=== PATIENT | female | born 1950 | race Caucasian/White ===

== ENCOUNTER 2021-03-14 15:01 | Inpatient (IN) | payer MEDICARE, BC ==
[~2021-03-14] VITALS: Ht 162.6 cm; Wt 98.6 kg
[2021-03-14] MEDS ORDERED: normal saline 1000ML IV soln IV ONE (15:40)
[2021-03-14] MEDS ORDERED: acetaminophen 325mg tablet PO STA (15:40)
[2021-03-14] MEDS ORDERED: DEXAMETHASONE 6 MG TABLET PO STA (15:42)
[2021-03-14 15:54] LABS: BASOPHILS % (AUTO) 0.6 % (0-1); EOSINOPHILS % (AUTO) 0.1 % (0-6); HEMOGLOBIN 14.6 g/dl (12.0-16.0); LYMPHOCYTES # (AUTO) 0.6 X10'3 (1.1-4.8); LYMPHOCYTES % (AUTO) 7.8 % (21-51); MEAN CORPUSCULAR HEMOGLOBIN 28.6 PG (27.0-31.0); MEAN CORPUSCULAR HGB CONC 33.3 g/dL (33.0-36.5); MONOCYTES # (AUTO) 0.5 X10'3 (0-0.9); MONOCYTES % (AUTO) 6.7 % (2-12); NEUTROPHILS # (AUTO) 6.7 X10'3 (1.8-7.7); NEUTROPHILS % (AUTO) 84.8 % (42-75); PLATELET COUNT 273 X10'3 (140-440); RED BLOOD COUNT 5.12 X10'6 (4.20-5.60); RED CELL DISTRIBUTION WIDTH 14.2 % (11.5-14.5); WHITE BLOOD COUNT 7.9 X10'3 (4.5-11.0)
[2021-03-14 16:15] LABS: ALANINE AMINOTRANSFERASE 45 U/L (12-78); ALBUMIN 2.8 G/DL (3.4-5.0); ALBUMIN/GLOBULIN RATIO 0.6 (1.1-1.5); ALKALINE PHOSPHATASE 55 IU/L (46-116); ANION GAP 15 (8-16); ASPARTATE AMINO TRANSFERASE 42 U/L (10-37); BILIRUBIN,TOTAL 0.6 MG/DL (0.1-1.0); BLOOD UREA NITROGEN 14 MG/DL (7-18); BUN/CREATININE RATIO 13.1 (6.6-38.0); CALCIUM 9.2 MG/DL (8.5-10.1); CHLORIDE 102 MMOL/L (99-107); CREATININE 1.07 MG/DL (0.40-0.90); GLUCOSE 178 MG/DL (70-104); MAGNESIUM 2.6 MG/DL (1.5-2.4); POTASSIUM 3.7 MMOL/L (3.5-5.1); SODIUM 141 MMOL/L (135-145); TOTAL CARBON DIOXIDE 24.2 MMOL/L (24-32); TOTAL PROTEIN 7.7 G/DL (6.4-8.2); eGFR 51 ML/MIN
[2021-03-14] MEDS ORDERED: iohexol 350MG/ML 100ml bottle IV ONE (16:47)
[2021-03-14] MEDS ORDERED: magnesium hydroxide 30ml (MOM) UD suspension PO PRN (17:05)
[2021-03-14] MEDS ORDERED: acetaminophen 325mg tablet PO PRN (17:05)
[2021-03-14] MEDS ORDERED: ondansetron/PF 4mg/2ml inj IV PRN (17:05)
[2021-03-14] MEDS ORDERED: mag hydrox/Alum hydrox/simeth 30ml oral suspension PO PRN (17:05)
[2021-03-14] MEDS ORDERED: AMLO10TA13 PO (17:12)
[2021-03-14] MEDS ORDERED: METF-900 PO ×2 (17:12→21:11)
[2021-03-14] MEDS ORDERED: ATOR20TA66 PO (17:12)
[2021-03-14] MEDS ORDERED: RAMI10CA69 PO (17:12)
[2021-03-14] MEDS: MESSAGE TO NURSING PO SCH (17:40)
[2021-03-14] MEDS ORDERED: heparin 10,000 units/1 ML INJ IV PRN (17:55)
[2021-03-14] MEDS ORDERED: heparin 10,000 units/1 ML INJ IV ONE (17:55)
[2021-03-14 19:06] LABS: PARTIAL THROMBOPLASTIN TIME 26 SECONDS (22-32)
[2021-03-14 19:29] LABS: CLARITY,URINE CLEAR (Clear); COLOR,URINE YELLOW (Yellow); UA COLLECTION TYPE CLN CATCH MIDSTREAM
[2021-03-14 19:30] LABS: GLUCOSE, URINE NEGATIVE (Neg); KETONES,URINE NEGATIVE (Neg); LEUKOCYTE ESTERASE ,URINE NEGATIVE (Neg); NITRITES, URINE NEGATIVE (Neg); OCCULT BLOOD,URINE NEGATIVE (Neg); PROTEIN,URINE NEGATIVE (Neg); UROBILINOGEN,URINE 0.2 E.U/dL (0.2-1.0)
[2021-03-14] MEDS ORDERED: enoxaparin 30mg/0.3ml syringe SQ SCH (20:00)
[2021-03-14] MEDS: docusate sod 100mg capsule PO SCH (20:00)
[2021-03-14] MEDS: carvedilol 6.25mg tablet PO SCH (20:36)
[2021-03-14] MEDS: dexamethasone inj 6 MG in normal saline 50ml IV soln 50 ML IV SCH (20:37)
[2021-03-14] MEDS: normal saline 1000ml 1,000 ML IV SCH (20:45)
--- NOTE | 2021-03-14 21:02 | NUR ---
REPORT GIVEN TO CAIO ARELLANO ON ORTHO.
[2021-03-14] MEDS: heparin 25,000 UNIT/250ml bag 250 ML IV SCH (21:07)
[2021-03-14 22:00] VITALS: BP 131/61
[2021-03-15 03:30] LABS: BASOPHILS % (AUTO) 0.3 % (0-1); EOSINOPHILS % (AUTO) 0 % (0-6); HEMATOCRIT 41.4 % (35.0-45.0); HEMOGLOBIN 13.8 g/dl (12.0-16.0); LYMPHOCYTES # (AUTO) 0.4 X10'3 (1.1-4.8); LYMPHOCYTES % (AUTO) 11.8 % (21-51); MEAN CORPUSCULAR HEMOGLOBIN 28.6 PG (27.0-31.0); MEAN CORPUSCULAR HGB CONC 33.3 g/dL (33.0-36.5); MEAN CORPUSCULAR VOLUME 85.8 FL (78-98); MONOCYTES # (AUTO) 0.1 X10'3 (0-0.9); MONOCYTES % (AUTO) 4.2 % (2-12); NEUTROPHILS # (AUTO) 2.6 X10'3 (1.8-7.7); NEUTROPHILS % (AUTO) 83.7 % (42-75); PLATELET COUNT 223 X10'3 (140-440); RED BLOOD COUNT 4.83 X10'6 (4.20-5.60); RED CELL DISTRIBUTION WIDTH 14.4 % (11.5-14.5); WHITE BLOOD COUNT 3.1 X10'3 (4.5-11.0)
[2021-03-15 03:41] LABS: ALBUMIN 2.4 G/DL (3.4-5.0); ANION GAP 12 (8-16); BLOOD UREA NITROGEN 12 MG/DL (7-18); BUN/CREATININE RATIO 12.8 (6.6-38.0); CALCIUM 8.5 MG/DL (8.5-10.1); CHLORIDE 109 MMOL/L (99-107); CREATININE 0.94 MG/DL (0.40-0.90); GLUCOSE 208 MG/DL (70-104); POTASSIUM 3.7 MMOL/L (3.5-5.1); SODIUM 145 MMOL/L (135-145); TOTAL CARBON DIOXIDE 24.5 MMOL/L (24-32); eGFR 59 ML/MIN
[2021-03-15 06:00] VITALS: BP 137/72
--- NOTE | 2021-03-15 06:21 | NUR ---
Problems reprioritized. Patient report given, questions answered & plan of care reviewed with EILEEN Funez .
--- NOTE | 2021-03-15 06:26 | NUR ---
Patient in room ORTHO 4010. I have received report from Radha Juarez RN and had the opportunity to ask questions and assume patient care.
[2021-03-15] MEDS: carvedilol 6.25mg tablet PO SCH ×2 (07:01→19:12)
[2021-03-15] MEDS: docusate sod 100mg capsule PO SCH ×2 (07:01→19:12)
[2021-03-15] MEDS: dexamethasone inj 6 MG in normal saline 50ml IV soln 50 ML IV SCH ×2 (07:01→19:12)
--- NOTE | 2021-03-15 08:24 | NUR ---
Page Sent PAGER ID: [phone] MESSAGE: [id number] Regarding [id number] Maira Souza- Can we get an order for midline? No A1C or diabetic protocol ordered.
[2021-03-15] MEDS: lisinopril 20mg tablet PO SCH (09:08)
[2021-03-15] MEDS: atorvastatin 20mg tablet PO SCH (09:08)
[2021-03-15] MEDS: heparin 25,000 UNIT/250ml bag 250 ML IV SCH ×2 (09:10→23:21)
[2021-03-15] MEDS: MESSAGE TO NURSING PO SCH (09:10)
--- NOTE | 2021-03-15 09:11 | NUR ---
Heparin drip held until DVT PTT came back from lab at 0800 which was 28, drip help per charge nurse d/t ptt of 139 in AM. Restarted heparin drip at 0810 at 1400unit/kg/hr per Charge nurse. Redrawn at 1010
[2021-03-15 10:00] VITALS: BP 117/64
[2021-03-15] MEDS ORDERED: dextrose 50%-water 50ml dispensing syringe IV PRN ×2 (10:50)
[2021-03-15] MEDS ORDERED: glucagon, human recombinant 1mg kit SUBCUT PRN (10:50)
[2021-03-15] MEDS ORDERED: MESSAGE TO PHARMACY PO ONE (10:50)
[2021-03-15] MEDS ORDERED: dextrose ORAL solution 15 GM/59 ML bottle PO PRN ×2 (10:50)
[2021-03-15] MEDS ORDERED: digoxin 250mcg/ml 2ml ampule IV ONE ×2 (11:00→17:00)
[2021-03-15 14:00] VITALS: BP 152/89
--- NOTE | 2021-03-15 14:53 | NUR ---
DM/malnutrition consults: Pt with T2DM, A1c pending at this time. Pt unsure of wt loss though reports decreased appetite per malnutrition risk screen with RN. No wt hx in EMR and current scaled wt is 181% IBW. Pt on a CHO controlled diet, documented to have refused first meal though up to 100% PO intake at second meal. Pt with no documented significant decrease in muscle strength or edema. Pt currently lacks a minimum of two criteria for malnutrition. Will continue to follow. Addendum: 03/15/21 at [address] Amended: Links added.
--- NOTE | 2021-03-15 17:38 | NUR ---
Spoke w/Lab at 1500 to make sure they had received a timed DVT PTT lab draw for 1700 d/t issue w/ previous timed draws. community service technician stated they had the order and would be on the floor at 1700 to collect. Lab did not collect timed DVT PTT- Lab stated there were no tech's to draw blood until 1800. Nursing staff to draw PTT.
[2021-03-15 18:00] VITALS: BP 136/74
--- NOTE | 2021-03-15 18:25 | NUR ---
Problems reprioritized. Patient report given,EILEEN Reyna questions answered & plan of care reviewed with .
--- NOTE | 2021-03-15 18:32 | NUR ---
Patient in room ORTHO 4010. I have received report from Dee Dee ARELLANO and had the opportunity to ask questions and assume patient care.
[2021-03-15] MEDS: insulin Lispro (HumaLOG) vial - multi-dose SQ SCH (18:43)
[2021-03-15] MEDS: normal saline 1000ml 1,000 ML IV SCH (19:12)
[2021-03-15] MEDS: insulin glargine (Lantus) pen - multi-dose SQ SCH (21:08)
[2021-03-15 22:00] VITALS: BP 145/100
[2021-03-16] VITALS (8 sets, daily range): BP systolic 125–149; BP diastolic 64–83
--- NOTE | 2021-03-16 00:21 | NUR ---
IV came out when patient was turning in her sleep. Heparin gtt was off for one hour due to no IV access. ER nurse came up and placed Right EJ. Will draw DVT PTT one hour later due to heparin being off for one hour.
[2021-03-16 03:09] LABS: BASOPHILS % (AUTO) 0.4 % (0-1); EOSINOPHILS % (AUTO) 0 % (0-6); HEMATOCRIT 40.6 % (35.0-45.0); HEMOGLOBIN 13.3 g/dl (12.0-16.0); LYMPHOCYTES # (AUTO) 0.5 X10'3 (1.1-4.8); LYMPHOCYTES % (AUTO) 6.1 % (21-51); MEAN CORPUSCULAR HEMOGLOBIN 28.2 PG (27.0-31.0); MEAN CORPUSCULAR HGB CONC 32.8 g/dL (33.0-36.5); MEAN CORPUSCULAR VOLUME 86.2 FL (78-98); MEAN PLATELET VOLUME 8.6 FL (7.4-10.4); MONOCYTES # (AUTO) 0.3 X10'3 (0-0.9); MONOCYTES % (AUTO) 4.2 % (2-12); NEUTROPHILS % (AUTO) 89.3 % (42-75); PLATELET COUNT 282 X10'3 (140-440); RED BLOOD COUNT 4.71 X10'6 (4.20-5.60); RED CELL DISTRIBUTION WIDTH 14.5 % (11.5-14.5); WHITE BLOOD COUNT 7.8 X10'3 (4.5-11.0)
[2021-03-16 03:14] LABS: ALBUMIN 2.4 G/DL (3.4-5.0); ANION GAP 8 (8-16); BLOOD UREA NITROGEN 18 MG/DL (7-18); BUN/CREATININE RATIO 18.9 (6.6-38.0); CALCIUM 8.6 MG/DL (8.5-10.1); CHLORIDE 107 MMOL/L (99-107); CREATININE 0.95 MG/DL (0.40-0.90); GLUCOSE 186 MG/DL (70-104); POTASSIUM 3.7 MMOL/L (3.5-5.1); SODIUM 141 MMOL/L (135-145); TOTAL CARBON DIOXIDE 26.1 MMOL/L (24-32); eGFR 58 ML/MIN
--- NOTE | 2021-03-16 06:21 | NUR ---
Problems reprioritized. Patient report given, questions answered & plan of care reviewed with Maryellen ARELLANO.
--- NOTE | 2021-03-16 06:21 | NUR ---
Patient in room ORTHO 4010. I have received report from EILEEN Reyna and had the opportunity to ask questions and assume patient care.
--- NOTE | 2021-03-16 07:11 | NUR ---
Page Sent regarding A-Fib RVR PAGER ID: [phone] MESSAGE: [id number] Regarding [id number] Marlin Souza Pt continues in A-FIB, HR elevation into 160s w/ANY activity- No Dig ordered.
[2021-03-16] MEDS: docusate sod 100mg capsule PO SCH ×2 (07:14→20:00)
[2021-03-16] MEDS: carvedilol 6.25mg tablet PO SCH ×2 (07:14→20:00)
[2021-03-16] MEDS: atorvastatin 20mg tablet PO SCH (07:14)
[2021-03-16] MEDS: lisinopril 20mg tablet PO SCH (07:16)
[2021-03-16] MEDS ORDERED: diltiazem 5mg/ml 5ml inj. IV ONE (07:35)
--- NOTE | 2021-03-16 07:39 | NUR ---
New Order Cardizem 10mg IV push 1x Now per Dr. Roth.
--- NOTE | 2021-03-16 08:18 | NUR ---
F/u for DM consult: Patient's A1c is 6.7%, DM education not warranted at this time. Will continue to follow. Addendum: 03/16/21 at [address] Amended: Links added.
[2021-03-16] MEDS: dexamethasone inj 6 MG in normal saline 50ml IV soln 50 ML IV SCH ×2 (09:00→21:25)
[2021-03-16] MEDS: insulin Lispro (HumaLOG) vial - multi-dose SQ SCH ×2 (09:18→14:45)
[2021-03-16] MEDS: MESSAGE TO NURSING PO SCH (10:00)
[2021-03-16] MEDS: heparin 25,000 UNIT/250ml bag 250 ML IV SCH (14:04)
[2021-03-16] MEDS ORDERED: heparin 25,000 UNIT/250ml bag 250 ML IV SCH (17:10)
--- NOTE | 2021-03-16 17:30 | NUR ---
Patient transferred to 3008. Connected to bedside monitor and Heparin drip infusing. Patient encouraged to use call light when needing to get up to use the bedside commode. Patient alert and orientated x4 and no c/o pain. Bed is locked, lowered, and side rails up x2. Call light and bedside table with in reach.
--- NOTE | 2021-03-16 17:40 | NUR ---
Problems reprioritized. Patient report given,EILEEN Gambino questions answered & plan of care reviewed with .
--- NOTE | 2021-03-16 18:34 | NUR ---
Problems reprioritized. Patient report given, questions answered & plan of care reviewed with Afsaneh ARELLANO.
[2021-03-16] MEDS: diltiazem-NS 100mg/100ml 100 ML IV SCH (20:09)
[2021-03-16] MEDS: insulin glargine (Lantus) pen - multi-dose SQ SCH (21:24)
[2021-03-17] VITALS (9 sets, daily range): BP systolic 106–164; BP diastolic 50–80
[2021-03-17 01:45] LABS: BASOPHILS % (AUTO) 0.5 % (0-1); EOSINOPHILS % (AUTO) 0 % (0-6); HEMATOCRIT 36.6 % (35.0-45.0); HEMOGLOBIN 12.4 g/dl (12.0-16.0); LYMPHOCYTES # (AUTO) 0.6 X10'3 (1.1-4.8); LYMPHOCYTES % (AUTO) 6.3 % (21-51); MEAN CORPUSCULAR HEMOGLOBIN 28.8 PG (27.0-31.0); MEAN CORPUSCULAR VOLUME 84.9 FL (78-98); MEAN PLATELET VOLUME 8.8 FL (7.4-10.4); MONOCYTES # (AUTO) 0.3 X10'3 (0-0.9); MONOCYTES % (AUTO) 3.3 % (2-12); NEUTROPHILS % (AUTO) 89.9 % (42-75); PLATELET COUNT 291 X10'3 (140-440); RED BLOOD COUNT 4.31 X10'6 (4.20-5.60); RED CELL DISTRIBUTION WIDTH 14.4 % (11.5-14.5); WHITE BLOOD COUNT 8.9 X10'3 (4.5-11.0)
--- NOTE | 2021-03-17 02:21 | NUR ---
Page Sent PAGER ID: [phone] MESSAGE: RE: Ayde Souza RM 3008: FYI PTT>139. Pausing heparin drip for 2 hours per protocol. Afsaneh [id number]
[2021-03-17 05:02] LABS: ALBUMIN 2.1 G/DL (3.4-5.0); ANION GAP 6 (8-16); BLOOD UREA NITROGEN 17 MG/DL (7-18); BUN/CREATININE RATIO 18.7 (6.6-38.0); CHLORIDE 109 MMOL/L (99-107); CREATININE 0.91 MG/DL (0.40-0.90); GLUCOSE 192 MG/DL (70-104); POTASSIUM 3.7 MMOL/L (3.5-5.1); SODIUM 142 MMOL/L (135-145); eGFR 61 ML/MIN
--- NOTE | 2021-03-17 06:30 | NUR ---
Patient in room PCU 3008. I have received report from Afsaneh ARELLANO and had the opportunity to ask questions and assume patient care.
[2021-03-17] MEDS: diltiazem-NS 100mg/100ml 100 ML IV SCH (09:30)
[2021-03-17] MEDS: docusate sod 100mg capsule PO SCH ×2 (09:31→19:29)
[2021-03-17] MEDS: atorvastatin 20mg tablet PO SCH (09:31)
[2021-03-17] MEDS: carvedilol 6.25mg tablet PO SCH (09:33)
[2021-03-17] MEDS: lisinopril 20mg tablet PO SCH (09:34)
[2021-03-17] MEDS: dexamethasone inj 6 MG in normal saline 50ml IV soln 50 ML IV SCH ×2 (09:35→19:29)
--- NOTE | 2021-03-17 18:11 | NUR ---
Problems reprioritized. Patient report given, questions answered & plan of care reviewed with Afsaneh ARELLANO.
[2021-03-17] MEDS: apixaban 5mg tablet PO SCH (19:29)
[2021-03-17] MEDS: insulin Lispro (HumaLOG) vial - multi-dose SQ SCH (19:32)
[2021-03-17] MEDS: insulin glargine (Lantus) pen - multi-dose SQ SCH (21:59)
[2021-03-18] VITALS (9 sets, daily range): BP systolic 120–168; BP diastolic 57–96
[2021-03-18] MEDS: diltiazem-NS 100mg/100ml 100 ML IV SCH ×3 (01:20→19:28)
--- NOTE | 2021-03-18 07:07 | NUR ---
Patient in room PCU 3008. I have received report from Afsaneh ARELLANO and had the opportunity to ask questions and assume patient care.
[2021-03-18 08:31] LABS: BASOPHILS % (AUTO) 0.3 % (0-1); EOSINOPHILS % (AUTO) 0 % (0-6); HEMOGLOBIN 13.6 g/dl (12.0-16.0); LYMPHOCYTES # (AUTO) 0.6 X10'3 (1.1-4.8); LYMPHOCYTES % (AUTO) 7.7 % (21-51); MEAN CORPUSCULAR HEMOGLOBIN 28.8 PG (27.0-31.0); MEAN CORPUSCULAR HGB CONC 33.3 g/dL (33.0-36.5); MEAN CORPUSCULAR VOLUME 86.5 FL (78-98); MEAN PLATELET VOLUME 8.5 FL (7.4-10.4); MONOCYTES # (AUTO) 0.5 X10'3 (0-0.9); MONOCYTES % (AUTO) 5.8 % (2-12); NEUTROPHILS # (AUTO) 7.2 X10'3 (1.8-7.7); NEUTROPHILS % (AUTO) 86.2 % (42-75); PLATELET COUNT 295 X10'3 (140-440); RED BLOOD COUNT 4.74 X10'6 (4.20-5.60); RED CELL DISTRIBUTION WIDTH 14.2 % (11.5-14.5); WHITE BLOOD COUNT 8.3 X10'3 (4.5-11.0)
[2021-03-18 08:52] LABS: D-DIMER 3.47 MG/L FEU (0-0.50)
[2021-03-18 09:04] LABS: ALBUMIN 2.5 G/DL (3.4-5.0); ANION GAP 10 (8-16); BLOOD UREA NITROGEN 17 MG/DL (7-18); BUN/CREATININE RATIO 19.8 (6.6-38.0); C-REACTIVE PROTEIN 0.84 MG/DL (0.0-0.5); CALCIUM 8.7 MG/DL (8.5-10.1); CHLORIDE 109 MMOL/L (99-107); CREATININE 0.86 MG/DL (0.40-0.90); FERRITIN 194 NG/ML (8-252); GLUCOSE 147 MG/DL (70-104); LACTATE DEHYDROGENASE 386 U/L (81-234); POTASSIUM 4.1 MMOL/L (3.5-5.1); SODIUM 146 MMOL/L (135-145); TOTAL CARBON DIOXIDE 27.3 MMOL/L (24-32); eGFR 65 ML/MIN
[2021-03-18] MEDS: apixaban 5mg tablet PO SCH ×2 (09:43→19:27)
[2021-03-18] MEDS: docusate sod 100mg capsule PO SCH ×2 (09:43→19:27)
[2021-03-18] MEDS: lisinopril 20mg tablet PO SCH (09:44)
[2021-03-18] MEDS: atorvastatin 20mg tablet PO SCH (09:45)
[2021-03-18] MEDS: dexamethasone inj 6 MG in normal saline 50ml IV soln 50 ML IV SCH ×2 (09:47→21:05)
--- NOTE | 2021-03-18 10:52 | NUR ---
Page to PICC RN 3008 Harley. Patient pulled IVs. Need new access TAN.PT on Cardizem gtt. Needs midline has order from the 17th. Leslee [phone]
[2021-03-18] MEDS ORDERED: diltiazem CD 180mg cap (once-daily) PO ONE (11:35)
[2021-03-18] MEDS ORDERED: digoxin 250mcg (0.25mg) tablet PO ONE (12:00)
[2021-03-18] MEDS: insulin Lispro (HumaLOG) vial - multi-dose SQ SCH ×2 (13:46→19:46)
--- NOTE | 2021-03-18 14:20 | NUR ---
No Iv access. PICC paged . DR. Roth aware HE gave on time orders for PO cardizem and Dig until IV access can be reestablished
[2021-03-18] MEDS: normal saline 1000ml 1,000 ML IV SCH (17:05)
--- NOTE | 2021-03-18 18:10 | NUR ---
Problems reprioritized. Patient report given, questions answered & plan of care reviewed with Elizabeth ARELLANO and Casi ARELLANO..
--- NOTE | 2021-03-18 18:30 | NUR ---
Patient in room PCU 3008. I have received report from Pamella Chatman and had the opportunity to ask questions and assume patient care.
[2021-03-18] MEDS: insulin glargine (Lantus) pen - multi-dose SQ SCH (21:00)
[2021-03-19] VITALS (9 sets, daily range): BP systolic 109–138; BP diastolic 62–86
--- NOTE | 2021-03-19 06:16 | NUR ---
Problems reprioritized. Patient report given, questions answered & plan of care reviewed with Paula ARELLANO.
--- NOTE | 2021-03-19 06:16 | NUR ---
Patient in room PCU 3008. I have received report from EILEEN Johnson and had the opportunity to ask questions and assume patient care.
[2021-03-19 07:46] LABS: EOSINOPHILS % (AUTO) 0 % (0-6); HEMATOCRIT 40.7 % (35.0-45.0); LYMPHOCYTES % (AUTO) 9.5 % (21-51); MEAN PLATELET VOLUME 8.1 FL (7.4-10.4); RED CELL DISTRIBUTION WIDTH 14.3 % (11.5-14.5); WHITE BLOOD COUNT 7.9 X10'3 (4.5-11.0)
[2021-03-19 07:48] LABS: BASOPHILS # (AUTO) 0.1 X10'3 (0-0.2); HEMOGLOBIN 13.7 g/dl (12.0-16.0); LYMPHOCYTES # (AUTO) 0.8 X10'3 (1.1-4.8); MEAN CORPUSCULAR HEMOGLOBIN 28.7 PG (27.0-31.0); MEAN CORPUSCULAR HGB CONC 33.6 g/dL (33.0-36.5); MEAN CORPUSCULAR VOLUME 85.5 FL (78-98); MONOCYTES # (AUTO) 0.4 X10'3 (0-0.9); MONOCYTES % (AUTO) 4.6 % (2-12); NEUTROPHILS # (AUTO) 6.7 X10'3 (1.8-7.7); NEUTROPHILS % (AUTO) 84.9 % (42-75); PLATELET COUNT 317 X10'3 (140-440); RED BLOOD COUNT 4.76 X10'6 (4.20-5.60)
[2021-03-19 07:58] LABS: ALBUMIN 2.5 G/DL (3.4-5.0); ANION GAP 10 (8-16); BLOOD UREA NITROGEN 21 MG/DL (7-18); BUN/CREATININE RATIO 24.1 (6.6-38.0); C-REACTIVE PROTEIN 0.35 MG/DL (0.0-0.5); CALCIUM 8.1 MG/DL (8.5-10.1); CHLORIDE 108 MMOL/L (99-107); CREATININE 0.87 MG/DL (0.40-0.90); GLUCOSE 150 MG/DL (70-104); POTASSIUM 4.1 MMOL/L (3.5-5.1); SODIUM 145 MMOL/L (135-145); eGFR 65 ML/MIN
[2021-03-19] MEDS: apixaban 5mg tablet PO SCH ×2 (08:43→19:35)
[2021-03-19] MEDS: dexamethasone inj 6 MG in normal saline 50ml IV soln 50 ML IV SCH ×2 (08:43→19:38)
[2021-03-19] MEDS: lisinopril 20mg tablet PO SCH (08:44)
[2021-03-19] MEDS: digoxin 250mcg (0.25mg) tablet PO SCH (08:44)
[2021-03-19] MEDS: atorvastatin 20mg tablet PO SCH (08:44)
[2021-03-19] MEDS: docusate sod 100mg capsule PO SCH ×2 (08:44→19:38)
[2021-03-19 08:54] LABS: D-DIMER 3.42 MG/L FEU (0-0.50)
[2021-03-19] MEDS: insulin Lispro (HumaLOG) vial - multi-dose SQ SCH ×3 (10:25→19:43)
--- NOTE | 2021-03-19 10:52 | NUR ---
PAGER ID: [phone] MESSAGE: room 3008 Ayde Rosa, placing order for cardizem 240mg. Is this order for once daily? Thank You, Paula ARELLANO [phone]
[2021-03-19] MEDS: diltiazem-NS 100mg/100ml 100 ML IV SCH (11:09)
[2021-03-19] MEDS: diltiazem CD 180mg cap (once-daily) PO SCH (12:05)
--- NOTE | 2021-03-19 12:05 | NUR ---
Initial: Pt admitted w/ SOB and Covid per EMR. Pt able to eat moderately well, avg intake 77% x 9 meals on CCHO diet meeting needs. No N/V/D noted, LBM 03/18. No nutrition intervention implemented at this time, will continue to monitor. Recs: 1. Continue CCHO diet as tolerated 2. Bowel care per rx 3. Weekly wts Addendum: 03/19/21 at [address] Amended: Links added.
--- NOTE | 2021-03-19 18:30 | NUR ---
Patient in room PCU 3008. I have received report from Paula ARELLANO and had the opportunity to ask questions and assume patient care.
[2021-03-19] MEDS: insulin glargine (Lantus) pen - multi-dose SQ SCH (21:00)
--- NOTE | 2021-03-19 22:15 | NUR ---
Pt educated about the importance of Lantus but she refused stating she needed to rest. Accucheck was refused as well.
--- NOTE | 2021-03-19 22:23 | NUR ---
Patient in room PCU 3008. I have received report from Paula ARELLANO and had the opportunity to ask questions and assume patient care.
[2021-03-20] VITALS: BP 117/75
[2021-03-20 02:00] VITALS: BP 119/72
[2021-03-20 04:00] VITALS: BP 107/60
[2021-03-20 04:09] LABS: D-DIMER 2.54 MG/L FEU (0-0.50)
--- NOTE | 2021-03-20 06:25 | NUR ---
Problems reprioritized. Patient report given, questions answered & plan of care reviewed with Paula ARELLANO.
--- NOTE | 2021-03-20 06:46 | NUR ---
Patient in room PCU 3008. I have received report from Elizabeth ARELLANO and had the opportunity to ask questions and assume patient care.
[2021-03-20] MEDS: dexamethasone inj 6 MG in normal saline 50ml IV soln 50 ML IV SCH ×2 (08:00→09:12)
[2021-03-20] MEDS: docusate sod 100mg capsule PO SCH (09:12)
[2021-03-20] MEDS: diltiazem CD 180mg cap (once-daily) PO SCH (09:13)
[2021-03-20] MEDS: atorvastatin 20mg tablet PO SCH (09:13)
[2021-03-20] MEDS: digoxin 250mcg (0.25mg) tablet PO SCH (09:13)
[2021-03-20] MEDS: apixaban 5mg tablet PO SCH (09:14)
[2021-03-20] MEDS: insulin Lispro (HumaLOG) vial - multi-dose SQ SCH (09:21)
[2021-03-20 09:22] VITALS: BP_SYST 116
[2021-03-20] MEDS: lisinopril 20mg tablet PO SCH (09:22)
--- NOTE | 2021-03-20 10:00 | NUR ---
paged regarding DC progress PAGER ID: [phone] MESSAGE: room 3008 Ayde Rosa patient is insistent to go home today, has refused IV Dexamethasone today only, D-dimers trending down, no AM labs ordered. can i order them to assist in DC progress? thank you, Jesus [phone]
[2021-03-20] MEDS ORDERED: APIX5TAB3 PO (11:39)
[2021-03-20] MEDS ORDERED: DEXA1TAB PO (11:39)
[2021-03-20] MEDS ORDERED: DIGO250T4 PO (11:39)
[2021-03-20] MEDS ORDERED: DILT180C66 PO (11:39)
--- NOTE | 2021-03-20 12:52 | NUR ---
O2 Sat at rest on room air:__94_% If below 89%: Recovery O2 Sat at rest on ___LPM:___%:___% via (mask/nasal cannula, etc..) No further documentation is necessary. If O2 Sat did not drop below 89% on room air,ambulate patient on room air. O2 Sat while ambulating on room air:__92_% Recovery O2 Sat while ambulating on ___LPM:___% No further documentation is necessary. If patient does not drop below 89% while ambulating, he/she does not qualify for home O2.
[2021-03-24] MEDS ORDERED: apixaban 5mg tablet PO SCH (20:00)
== END 2021-03-20 14:15 | disposition home or self-care (01) | DRG 177 ==
LOC: ER 15:02 → UNDOADMIN 17:02 → ED HOLD 17:02 → ORTHO 4S 21:20 → ED HOLD 21:20 → PCU 3S 03-16 17:20
PROVIDERS: ADMIT Family Medicine; ATTEND Family Medicine
PROC: B32T1ZZ Computerized Tomography (CT Scan) of Left Pulmonary Artery using Low Osmolar Contrast (ICD-10-PCS; principal; 2021-03-14)
PROC: B3201ZZ Computerized Tomography (CT Scan) of Thoracic Aorta using Low Osmolar Contrast (ICD-10-PCS; 2021-03-14)
PROC: B32S1ZZ Computerized Tomography (CT Scan) of Right Pulmonary Artery using Low Osmolar Contrast (ICD-10-PCS; 2021-03-14)
PROC: 5A0935A Assistance with Respiratory Ventilation, Less than 24 Consecutive Hours, High Flow/Velocity Cannula (ICD-10-PCS; 2021-03-15)
PROC: 5A0945A Assistance with Respiratory Ventilation, 24-96 Consecutive Hours, High Flow/Velocity Cannula (ICD-10-PCS; 2021-03-16)
DX: U07.1 COVID-19 (principal); J96.01 Acute respiratory failure with hypoxia; I26.93 Single subsegmental thrombotic pulmonary embolism without acute cor pulmonale; J12.82 Pneumonia due to coronavirus disease 2019; I48.91 Unspecified atrial fibrillation; Z66 Do not resuscitate; E11.9 Type 2 diabetes mellitus without complications; E66.01 Morbid (severe) obesity due to excess calories; Z68.37 Body mass index [BMI] 37.0-37.9, adult; Z88.0 Allergy status to penicillin; Z90.49 Acquired absence of other specified parts of digestive tract
CPT/HCPCS: 36415; 71045; 71275; 76937; 80048; 80053; 81003; 82728; 82948; 83036; 83605; 83615; 83735; 84145; 85025; 85379; 85730; 86140; 87040; 87081; 93005; 94760; 99291; G0378; J1100; J1160; J1644; J1815; J3490; J7030; J8540; Q9967